=== PATIENT | male | born 1950 | race Caucasian/White ===

== ENCOUNTER 2019-08-16 13:45 | Emergency (ER) | payer MEDICARE, BC ==
--- NOTE | 2019-08-16 15:19 | XR ---
EXAMINATION TYPE: XR foot complete RT DATE OF EXAM: 08/16/2019 COMPARISON: NONE HISTORY: Foot pain TECHNIQUE: 3 views FINDINGS: Metatarsals appear intact. I see no fracture nor dislocation. There is plantar calcaneal sp urring. There is some spurring at the talonavicular joint. There is small Achilles calcaneal spur. IMPRESSION: Degenerative spur formation. No fracture seen.
--- NOTE | 2019-08-16 15:27 | ED ---
Lower Extremity Injury HPI - General Source: patient Mode of arrival: ambulatory Limitations: no limitations <Mary Andersen - Last Filed: 08/16/19 16:01> <Libia Le - Last Filed: 08/18/19 00:22> - General Chief Complaint: Extremity Injury, Lower Stated Complaint: Foot injury Time Seen by Provider: 08/16/19 14:11 - History of Present Illness Initial Comments: Patient is a 69-year-old male presenting to emergency Department with complaints of right foot pain after slipping on it yesterday. Patient states he slipped on a stair yesterday hurting his right foot. Patient states he was able to walk on his foot yesterday with minimal pain however today when he woke up he noticed increased amount of pain and some mild swelling. He was concerned he has a fracture in there. He denies any history of previous fractures. He denies any other injuries from falling yesterday. He has no other complaints today. On arrival to the ER, his vital signs are stable. (Mary Andersen) - Related Data Allergies Allergy/AdvReac Type Severity Reaction Status Date / Time No Known Allergies Allergy Verified 08/16/19 14:06 Review of Systems ROS Other: All systems not noted in ROS Statement are negative. <Mary Andersen - Last Filed: 08/16/19 16:01> ROS Other: All systems not noted in ROS Statement are negative. <Libia Le - Last Filed: 08/18/19 00:22> ROS Statement: Those systems with pertinent positive or pertinent negative responses have been documented in the HPI. Past Medical History Past Medical History: No Reported History History of Any Multi-Drug Resistant Organisms: None Reported Past Surgical History: No Surgical Hx Reported Past Psychological History: No Psychological Hx Reported Smoking Status: Never smoker Past Alcohol Use History: None Reported Past Drug Use History: None Reported <Mary Andersen - Last Filed: 08/16/19 16:01> General Exam Limitations: no limitations <Mary Andersen - Last Filed: 08/16/19 16:01> - General Exam Comments Initial Comments: GENERAL: Well-appearing, well-nourished and in no acute distress. HEAD: Atraumatic, normocephalic. EYES: Pupils equal round and reactive to light, extraocular movements intact, sclera anicteric, conjunctiva are normal. ENT: Moist mucous membranes. NECK: Normal range of motion, supple without lymphadenopathy or JVD. LUNGS: Breath sounds clear to auscultation bilaterally and equal. No wheezes rales or rhonchi. HEART: Regular rate and rhythm without murmurs, rubs or gallops. ABDOMEN: Soft, nontender, normoactive bowel sounds. No guarding, no rebound. No masses appreciated. EXTREMITIES: Patient has pain with palpation of the right lateral foot, over the fifth metatarsal. He does have full range of motion of his toes and ankle. No pain i n the ankle joint or tib-fib area. He is neurovascular intact. There is mild swelling to the area no bruising. No signs of infection. No clubbing or cyanosis. NEUROLOGICAL: Normal speech, normal gait. PSYCH: Normal mood, normal affect. SKIN: Warm, Dry, normal turgor, no rashes or lesions noted. (Mary Andersen) Course Vital Signs 08/16/19 08/16/19 14:03 15:28 Temperature 98.1 F 98.0 F Pulse Rate 66 68 Respiratory 20 18 Rate Blood Pressure 128/63 124/71 O2 Sat by Pulse 98 100 Oximetry Medical Decision Making <Mary Andersen - Last Filed: 08/16/19 16:01> <Libia Le - Last Filed: 08/18/19 00:22> - Medical Decision Making Patient is a 69-year-old male presenting with right foot pain after slipping on it yesterday. X-rays of the right foot show no acute fractures dislocations. I discussed with patient this is most likely a contusion. He will continue to use ice to the area, ibuprofen for pain. He will follow up with his PCP if symptoms persist. He is stable for discharge. He is in agreement this plan of care. Case discussed with Dr. Le. (Mary Andersen) I was available for consultation in the emergency department. The history and physical exam were done by the midlevel provider. I was consulted for this patients care. I reviewed the case with the midlevel provider and based on their presentation of the patient, I agree with the assessment, medical decision making and plan of care as documented. Chart was dictated using [employer] dictation software. Attempts were made to correct any dictation errors however some typographical errors may persist. (Libia Le) Disposition Is patient prescribed a controlled substance at d/c from ED?: No <Mary Andersen - Last Filed: 08/16/19 16:01> <Libia Le - Last Filed: 08/18/19 00:22> Clinical Impression: Contusion of right foot Disposition: HOME SELF-CARE Condition: Stable Instructions (If sedation given, give patient instructions): Foot Contusion (ED) Additional Instructions: Please return to the Emergency Department if symptoms worsen or any other concerns. Use ice to the area as well as ibuprofen for discomfort. Follow-up with PCP in 1-2 weeks if symptoms persist. Referrals: Aaron Navarrete MD [Primary Care Provider] - 1-2 days
[2019-08-16 15:32] VITALS: BP 124/71; PULSE 68; RESP 18; TEMP 98
== END 2019-08-16 15:28 | disposition home or self-care (01) ==
LOC: EC 13:45
DX: S90.31XA Contusion of right foot, initial encounter (principal); W18.40XA Slipping, tripping and stumbling without falling, unspecified, initial encounter; Y92.89 Other specified places as the place of occurrence of the external cause
CPT/HCPCS: 99283

== ENCOUNTER → 2020-07-22 | Outpatient (CLI) | payer MEDICARE, BC ==
--- NOTE | 2020-07-23 07:10 | US ---
EXAMINATION TYPE: US groin RT DATE OF EXAM: 07/22/2020 COMPARISON: NONE CLINICAL HISTORY: R19.00 ABD AND PELVIC PAIN, MASS AND LUMP. Patient states lump right groin that he can push back in. Scanning was performed directly over right groin where patient feels lump. There appears to be a leigh ia with 1.5 cm opening with the valsalva maneuver. IMPRESSION: Right-sided hernia is noted.
--- NOTE | 2020-07-23 07:10 | US ---
EXAMINATION TYPE: US groin LT DATE OF EXAM: 07/22/2020 COMPARISON: NONE CLINICAL HISTORY: R19.00 ABD AND PELVIC SWELLING MASS AND LUMP. Patient states lump in left groin, not as big as lump in right groin. Scanning was performed directly over lump in left groin as pointed out by patient. Valsalva maneuver was utilized. No definite hernia seen by ultrasound. IMPRESSION: No sonographic evidence for left inguinal hernia.
== END | disposition home or self-care (01) ==
LOC: RADUSWWP 16:12
PROVIDERS: ATTEND Family Medicine
DX: K40.90 Unilateral inguinal hernia, without obstruction or gangrene, not specified as recurrent (principal); R19.09 Other intra-abdominal and pelvic swelling, mass and lump

== ENCOUNTER → 2020-09-22 | Outpatient (CLI) | payer MEDICARE, BC ==
--- NOTE | 2020-09-23 02:08 | MR ---
EXAMINATION TYPE: MR ankle RT wo con DATE OF EXAM: 09/22/2020 COMPARISON: None HISTORY: Rt ankle pain x 6 months, retrocalcaneal exostosis Multiplanar multiecho imaging of the right ankle was performed with no contrast. There is plantar and Achilles calcaneal spurring. Achilles tendon is intact. There is some soft tissu e edema anterior to the Achilles tendon. The medial and lateral flexor tendons appear intact. Ankle mortise is anatomic. There is subcutaneous mild edema around the ankle. The collateral ligaments appear intact. There is no evidence of a fracture. There is some soft tissue edema also at the plantar aspect of the midfoot. IMPRESSION: No evidence of ligament or tendon tear. Soft tissue edema as above. No fracture.
== END | disposition home or self-care (01) ==
LOC: RADMRIMAIN 07:05
PROVIDERS: ATTEND Podiatrist Foot & Ankle Surgery
DX: R60.0 Localized edema (principal)

== ENCOUNTER 2021-11-01 11:20 | Inpatient (IN) | payer MEDICARE, BC ==
[2021-11-01] MEDS ORDERED: HEPARIN SODIUM 1,000 UN/ML (10ML VL) ONE (11:36)
[2021-11-01] MEDS ORDERED: fentaNYL (PF) 50 MCG/ML 2 ML AMP ONE (11:36)
[2021-11-01] MEDS ORDERED: fentaNYL (PF) 50 MCG/ML 2 ML AMP IVP ONE (11:44)
[2021-11-01] MEDS ORDERED: MIDAZOLAM 2 MG/2 ML VIAL IVP ONE (11:44)
[2021-11-01] MEDS ORDERED: LIDOCAINE 1% INJ 10MG/ML (30 ML VIAL-PF) SQ ONE (11:45)
[2021-11-01] MEDS ORDERED: IV FLUID CONTINUATION 1,000 ML IV ONE (11:50)
[2021-11-01] MEDS ORDERED: TICAGRELOR 90 MG TAB ONE (11:57)
[2021-11-01] MEDS ORDERED: TICAGRELOR 90 MG TAB PO ONE (12:00)
[2021-11-01] MEDS: HEPARIN SODIUM 1,000 UN/ML (10ML VL) IV ONE ×3 (12:00→12:32)
[2021-11-01] MEDS: NITROGLYCERIN 1000MCG/10ML SYRINGE INTRACORON ONE ×3 (12:14→12:33)
[2021-11-01] MEDS ORDERED: IOPAMIDOL-370 125ML BTL INJ ONE (12:33)
--- NOTE | 2021-11-01 12:42 | CC ---
CARDIAC CATHETERIZATION REPORT INDICATION: Acute inferior wall myocardial infarction. This is a 71-year-old gentleman who presented to [facility] with acute inferior wall WI and was transferred to [facility] emergently for cardiac catheterization and primary angioplasty. I arrived in the labor trainer and it was almost 10 to 15 minutes before the patient arrived in the lab. The patient got into the lab around 11:40 and was ready for lidocaine at 11:47. We proceeded expeditiously to perform diagnostic catheterization. PROCEDURE NOTE: After obtaining informed consent, left heart catheterization and coronary angiogram were performed via the right femoral artery using standard Marcos catheters. Patient tolerated the procedure well without any obvious immediate complications. FINDINGS: HEMODYNAMICS: Central aortic pressure is 120/80 mm. LEFT VENTRICULOGRAM: Left ventriculogram was not performed. ANGIOGRAPHIC DATA: Left main coronary artery is a normal-sized vessel and is free of stenosis. It divides into left anterior descending coronary artery and circumflex coronary artery. Circumflex coronary artery appears subtotally occluded in the mid to distal portion with [id number] collaterals. LAD is free of significant disease. The diagonal branch shows an 80% to 90% stenosis. Right coronary artery is a large dominant vessel that is totally occluded distally and there is a focal 95% stenosis in the mid portion. There are [id number] collaterals. CONCLUSIONS: Three-vessel coronary artery disease with an acutely occluded right coronary artery, which is the vessel responsible for myocardial infarction. PLAN: Dr. Villarreal will proceed with angioplasty of the right coronary artery. We will address the diagonal and the circumflex lesions down the road. MMODL / IJN: [id number] /
--- NOTE | 2021-11-01 14:17 | CONS ---
CONSULTATION This is a 71-year-old gentleman with no significant past medical history who sees Dr. Navarrete as his primary care physician. He presented to the emergency room at [facility] with sudden onset chest pain. Patient was mowing the lawn and started developing chest pressure, moderate to severe, in the precordial area that radiated to his back. He came to the ER, where the EKG showed acute ST-segment elevation in leads III and aVF with ST-segment depression in V2, V3. We made a diagnosis of acute inferior wall myocardial infarction and are arranging for emergent transfer to [facility] for catheterization and primary angioplasty. Patient has been explained risks, benefits and alternatives. PAST MEDICAL HISTORY: for hypertension, diabetes, dyslipidemia. MEDICATIONS: None. ALLERGIES: NONE. FAMILY HISTORY: Negative for premature coronary artery disease. SOCIAL HISTORY: Negative for current smoking, EtOH abuse or drug abuse. REVIEW OF SYSTEMS: HEENT is unremarkable. CARDIAC: As described above. RESPIRATORY: Negative. GI: Negative. GENITOURINARY: Negative. ALLERGY/IMMUNOLOGY: Negative. SKIN: Negative. MUSCULOSKELETAL: Negative. ENDOCRINE: Negative. DERMATOLOGY: Negative. CONSTITUTIONAL: Negative. ONCOLOGICAL: Negative. DIRECTOR OF EMPLOYER SERVICES: Negative. PHYSICAL EXAMINATION: On exam, he is comfortable at rest. Vital signs are stable. Chest exam reveals good air entry bilaterally. Heart exam reveals first and second heart sounds. No gallop. No murmur. No rub. Abdomen is soft, nontender. Examination of extremities did not reveal any edema. Peripheral pulses are felt. LABS: Labs show a hemoglobin of 11.9. Platelet count is 260. Electrolytes are pending at this time. EKG shows sinus bradycardia with acute inferior wall myocardial infarction. ASSESSMENT AND PLAN: Acute inferior wall myocardial infarction. Patient will be transferred to [facility] emergently for cardiac catheterization and primary angioplasty. MMODL / IJN: [id number] /
[2021-11-01] MEDS ORDERED: NITROGLYCERIN SL TABS 0.4 MG TAB SUBLINGUAL PRN (14:59)
[2021-11-01] MEDS ORDERED: RX INFO: IV CONTRAST WAS GIVEN 1 EACH MISC MISCELLANE PRN (14:59)
[2021-11-01] MEDS ORDERED: ZOLPIDEM 5 MG TAB PO PRN (14:59)
[2021-11-01] MEDS ORDERED: MAG HYDROX/AL HYDROX/SIMETH 30 ML CUP PO PRN (14:59)
[2021-11-01] MEDS ORDERED: ATROPINE SULFATE 0.1 MG/ML 10ML SYRINGE IV PRN (14:59)
[2021-11-01] MEDS ORDERED: SODIUM CHLORIDE 0.9% 1,000 ML in EMPTY BAG 1 BAG IV SCH (15:00)
[2021-11-01] MEDS ORDERED: NALOXONE 0.4 MG/ML 1 ML VIAL IV PRN (18:25)
[2021-11-01] MEDS ORDERED: MELATONIN 3 MG TABLET PO PRN (18:25)
[2021-11-01] MEDS ORDERED: bisacodyL 5 MG TABLET.DR PO PRN (18:25)
[2021-11-01] MEDS ORDERED: ONDANSETRON 4 MG/2 ML VIAL IVP PRN (18:25)
[2021-11-01] MEDS ORDERED: HYDROcodone/APAP 5-325MG 1 EACH TAB PO PRN (18:25)
[2021-11-01] MEDS ORDERED: ACETAMINOPHEN TAB 325 MG TAB PO PRN (18:25)
--- NOTE | 2021-11-01 18:32 | P.HPIM ---
History of Present Illness H&P Date: 11/01/21 (delayed charting seen at 1600) Chief Complaint: chest pain Patient is a 71-year-old male with no known past medical history who initially presented to [facility] with complaints of chest pain. 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 He was then transferred to the ICU. Patient seen and examined at bedside. He states today he is trying he uses [employer] when he felt sudden onset left-sided substernal chest pain. He denies any association with shortness of breath, nausea, lightheadedness or dizziness, diaphoresis, and abdominal pain. He states he tried to rest and again chest pain recurred when he pushed the mower. That is when he decided to come to the hospital. He denies any recent cough or cold, fever, flu. He has no heart history in the past and he does state he had some chest pain when working out approximately one week ago but it typically resolves and today he decided to proceed to the hospital because it did not resolve. He is very active and works out multiple times a week and watches his diet. Mother and father both of heart attacks before the age of 65. Pertinent positives and negatives as discussed in HPI, a complete review of systems was performed and all other systems are negative. General: non toxic, no distress, appears at stated age Derm: warm, dry Head: atraumatic, normocephalic, symmetric Eyes: EOMI, no lid lag, anicteric sclera, pupils equal round reactive to light ENT: Nose and ears atraumatic, no thrush, no pharyngeal erythema Neck: No thyromegaly, no cervical lymphadenopathy, trachea midline, supple Mouth: no lip lesion, mucus membranes moist Cardiovascular: S1S2 reg, no murmur, positive posterior tibial pulse bilateral, no edema, capillary refill less than 2 seconds Lungs: clear to ascultation bilateral, no ronchi, no rales, no wheeze, no accessory muscle use Abdominal: soft, nontender to palpation, no guarding, no appreciable organomegaly, normal bowel sounds Ext: no gross muscle atrophy, muscle strength muscle strength 5 out of 5 in all 4 extremities, no contractures Neuro: CN II-XI grossly intact, light touch intact all 4 extremities, finger to nose within normal limits, Psych: Alert, oriented, appropriate affect Assessment/plan: ST segment elevated myocardial infarction - Status post PCI to RCA - Aspirin/Brillenta - Metoprolol - Statin - A1C, Lipids DVT prophylaxis: Heparin Discussed with: Patientsharri Anticipated discharge: in 2-[address]: home A total of 65 minutes was spent on the care of this complex patient more than 50 % of the time was spent in counseling and care coordination. Past Medical History Past Medical History: No Reported History History of Any Multi-Drug Resistant Organisms: None Reported Past Surgical History: Hernia Repair Additional Past Surgical History / Comment(s): Cataract B/L eyes Past Anesthesia/Blood Transfusion Reactions: No Reported Reaction Past Psychological History: No Psychological Hx Reported Smoking Status: Former smoker Past Alcohol Use History: None Reported Past Drug Use History: None Reported - Past Family History Father History Unknown: Yes Family Medical History: Myocardial Infarction (NH) Additional Family Medical History / Comment(s): Mother History Unknown: Yes Family Medical History: Myocardial Infarction (NH) Additional Family Medical History / Comment(s): Sister(s) History Unknown: Yes Family Medical History: Diabetes Mellitus Daughter(s) History Unknown: Yes Family Medical History: No Reported History Son(s) History Unknown: Yes Family Medical History: No Reported History Medications and Allergies Home Medications Medication Instructions Recorded Confirmed Type Ammonium Lactate Lotion 1 applic TOPICAL QID 11/01/21 11/01/21 History [Lac-Hydrin 12% Lotion] Cholecalciferol [Vitamin D3 (125 125 mcg PO DAILY 11/01/21 11/01/21 History Mcg = 5000 Iu)] Magnesium W/Vitamin B-6 1 tab PO Q48H 11/01/21 11/01/21 History Allergies Allergy/AdvReac Type Severity Reaction Status Date / Time No Known Allergies Allergy Verified 11/01/21 13:19 Physical Exam Osteopathic Statement: *. No significant issues noted on an osteopathic structural exam other than those noted in the History and Physical/Consult. Vitals: Intake and Output 11/01/21 11/01/21 11/01/21 06:59 14:59 22:59 Intake Total 425 150 Output Total 550 Balance 425 -400 Intake: IV 350 Intake, IV Titration 75 150 Amount Sodium Chloride 0.9% 1, 75 150 000 ml In Empty Bag 1 bag @ 120 mls/hr IV .Q8H20M [facility] Rx#:[id number] Output: Urine 550 Other: Voiding Method Urinal Weight 84 kg 84 kg Thrombosis Risk Factor Assmnt - Choose All That Apply Any of the Below Risk Factors Present?: Yes Each Factor Represents 1 point: Acute NH, Medical pt on bed rest Other Risk Factors: No Other congenital or acquired thrombophilia - If yes, enter type in comment: No Thrombosis Risk Factor Assessment Total Risk Factor Score: 2 Thrombosis Risk Factor Assessment Level: Low Risk
--- NOTE | 2021-11-01 18:42 | P.PRCINT ---
Percutaneous Coronary Int. - Percutaneous Coronary Intervention Percutaneous Coronary Intervention: PROCEDURES PERFORMED: Right coronary angiography, PCI RCA with 3.0 x 38mm Xience TERESA, post dilated with a 4.0 NC balloon proximally INDICATION: Inferior STEMI PROCEDURE: After the risks, benefits and alternatives of the above mentioned procedure explained in detail with the patient, informed consent was obtained. Patient had already been taken to the catheterization lab and prepped and draped in usual fashion. A 6-Israeli sheath had already been placed in the right femoral artery. The decision was made to perform PCI of the RCA. Heparin was given to maintain ACT > 250. A 6FR AL 0.75 guide was used to engage the RCA. A 0.014 BMW wire was advanced into the distal RCA. Next predilation was performed with a 2.5 x 12mm balloon. There was a large thrombus burden at the level of a small caliber acute marginal branch and attempts were made at wiring the acute marginal however due to angulation this was unsuccessful with a 0.014 whisper wire and a microcatheter. Therefore the marginal branch was felt best treated medically. The lesion was again predilated with a 3.0 x 15mm balloon. Next a 3.0 x 38mm Xience TERESA was placed in the proximal to mid RCA. The proximal and mid portion of the stent was post dilated with a 4.0 x 12mm NC balloon. The wire was removed and final angiograms were performed. Pre intervention there was a 100% RCA stenosis and RAUDEL 1 flow and post intervention there was RAUDEL 3 flow with 0 % stenosis. A 6-Israeli FR5 catheter was inserted into the left ventricle and pressure measurements were obtained. A right femoral angiogram was performed which showed adequate anatomy for closure. A 6Fr Angioseal was placed with hemostasis achieved. The patient tolerated the procedure well. Patient was transported back to the post catheterization holding area in stable condition. Conscious Sedation: Patient was monitored under the direct supervision of vision of myself for conscious sedation using Versed and fentanyl for a total duration of 52 minutes HEMODYNAMICS: LV: 120/2, LVEDP 11 SELECTIVE CORONARY ARTERIOGRAPHY: LEFT MAIN: Not imaged, see diagnostic cath report. LEFT ANTERIOR DESCENDING CORONARY ARTERY: Not imaged, see diagnostic cath report. LEFT CIRCUMFLEX CORONARY ARTERY: Not imaged, see diagnostic cath report. RIGHT CORONARY ARTERY: The right coronary artery is a large caliber vessel which gives off a PDA and PLV branch and is the dominant vessel. There is diffuse proximal 70-80% RCA stenosis then a 100% mid RCA stenosis at the level of a small caliber acute marginal branch. FINAL IMPRESSION: 1. CAD as described above including 100% mid RCA stenosis 2. S/p PCI RCA with 3.0 x 38mm Xience TERESA, post dilated with a 4.0 NC balloon proximally 3. Normal left sided filling pressures PLAN: 1. Aggressive risk factor modification per most recent ACC/AHA guidelines. 2. Continue dual antiplatelets for 12 months with aspirin and Brillinta. 3. Consider staged PCI circumflex and diagonal branch.
[2021-11-01] MEDS: ATORVASTATIN 80 MG TAB PO SCH (20:14)
[2021-11-01] MEDS: METOPROLOL TARTRATE 25 MG TAB PO SCH (20:14)
[2021-11-01] MEDS: TICAGRELOR 90 MG TAB PO SCH (20:14)
[2021-11-01 22:52] LABS: Magnesium 2.1 mg/dL (1.6-2.3); Potassium 4.5 mmol/L (3.5-5.1)
[2021-11-02 06:09] LABS: Basophils % (A) 0 %; Eosinophils # (A) 0.1 k/uL (0-0.7); Eosinophils % (A) 1 %; HCT 37.2 % (39.0-53.0); HGB 11.9 gm/dL (13.0-17.5); Lymphocytes # (A) 1.7 k/uL (1.0-4.8); Lymphocytes % (A) 20 %; MCH 30.7 pg (25.0-35.0); MCV 95.8 fL (80.0-100.0); Mean Platelet Volume 7.2; Monocytes # (A) 0.5 k/uL (0-1.0); Monocytes % (A) 6 %; Neutrophils # (A) 6.2 k/uL (1.3-7.7); Neutrophils % (A) 72 %; Platelet Count 247 k/uL (150-450); RBC 3.88 m/uL (4.30-5.90); RDW 12.4 % (11.5-15.5); WBC 8.6 k/uL (3.8-10.6)
[2021-11-02 06:25] LABS: Calcium 8.7 mg/dL (8.4-10.2); Potassium 4.2 mmol/L (3.5-5.1)
[2021-11-02] MEDS: ASPIRIN 81 MG PO SCH (09:51)
[2021-11-02] MEDS: TICAGRELOR 90 MG TAB PO SCH ×2 (09:51→20:39)
[2021-11-02 10:03] LABS: LDL Cholesterol,Calculated 76.7 mg/dL (0.0-131.0); VLDL Calculation 14.48 mg/dL (5.00-40.00)
[2021-11-02] MEDS: METOPROLOL TARTRATE 25 MG TAB PO SCH ×2 (10:11→20:38)
--- NOTE | 2021-11-02 10:16 | P.PN ---
Subjective Progress Note Date: 11/02/21 This is a 71-year-old gentleman who was admitted with stuttering chest pains and evidence of inferior wall OR to [facility]. Subsequently was brought in here and had a Stent Placement of the RCA. Patient seemed to be doing well. Denies any chest pain, shortness of breath, dizziness or syncope. His maintaining sinus rhythm but has been having sinus bradycardia. Patient's metoprolol is held. His blood pressure is controlled. Lungs are clear. Heart is regular. No JVD. His groin is soft without any hematoma. His leg is warm. Echocardiogram is done this morning and the results are pending. We will continue current medical therapy and increase activity as tolerated. Patient c ould be transferred to{ 3 S} to the telemetry unit. His lipid panel is well controlled. Hemoglobin is mildly low. Objective - Vital Signs Vital signs: Vital Signs Temp 98.2 F 11/02/21 07:00 Pulse 53 L 11/02/21 09:10 Resp 20 11/02/21 09:10 BP 130/55 11/02/21 09:10 Pulse Ox 95 11/02/21 09:10 FiO2 Intake & Output 11/01/21 11/02/21 11/02/21 18:59 06:59 18:59 Intake Total 575 500 400 Output Total 550 1925 400 Balance 25 -1425 0 Weight 84 kg 83 kg Intake: IV 350 Intake, IV Titration 225 Amount Sodium Chloride 0.9% 1, 225 000 ml In Empty Bag 1 bag @ 120 mls/hr IV .Q8H20M [facility] Rx#:[id number] Oral 500 400 Output: Urine 550 1925 400 Other: Voiding Method Urinal Urinal - Exam GENERAL EXAM: Patient is alert and oriented and doesn't appear to be in any acute distress HEENT: Normocephalic. Normal reaction of pupils, equal size, normal range of extraocular motion. No erythema or exudates in the throat. NECK: No masses, no nuchal rigidity. CHEST: No chest wall deformity. LUNGS: Equal air entry with no crackles or wheeze. HEART: S1 and S2 normal with no audible mumurs or gallops. Regular rhythm, femorals equal on both sides.. ABDOMEN: No hepatosplenomegaly, normal bowel sounds, no guarding or rigidity. SKIN: No rashes CENTRAL NERVOUS SYSTEM: No focal deficits. EXTREMITIES: No cyanosis, clubbing or edema. GROIN: Soft without hematoma - Labs CBC & Chem 7: 11/02/21 05:46 11/02/21 05:46 Labs: Abnormal Lab Results - Last 24 Hours (Table) 11/02/21 11/02/21 Range/Units 05:46 05:46 RBC 3.88 L (4.30-5.90) m/uL Hgb 11.9 L (13.0-17.5) gm/dL Hct 37.2 L (39.0-53.0) % Carbon Dioxide 31 H (22-30) mmol/L Glucose 111 H (74-99) mg/dL Assessment and Plan (1) Acute OR, inferior wall Current Visit: Yes Status: Acute Code(s): I21.19 - STEMI INVOLVING OTH CORON DASHAWN ARTERY OF INFERIOR WALL SNOMED Code(s): 94061048 Plan: Patient is status post stent placement of the RCA. Currently on beta rebekah but being held because of bradycardia. Continue other medication including dual antiplatelet agents. Patient could be transferred to stepdown unit
[2021-11-02 11:46] VITALS: BMI 24.1
--- NOTE | 2021-11-02 14:09 | P.PN ---
Subjective Progress Note Date: 11/02/21 (delayed charting seen at 1115) Principal diagnosis: chest pain Patient is a 71-year-old male with no known past medical history who initially presented to [facility] with complaints of chest pain. There he was found to have an ST segment elevated myocardial infarction and he was emergently transferred to our manager labor delivery where he underwent PCI to RCA. He was then transferred to the ICU. Patient seen and examined at bedside. He has no chest pain, SOB, nausea or vomiting. General: non toxic, no distress, appears at stated age Derm: warm, dry Head: atraumatic, normocephalic, symmetric Eyes: EOMI, no lid lag, anicteric sclera Mouth: no lip lesion, mucus membranes moist Cardiovascular: S1S2 reg, no murmur, positive posterior tibial pulse bilateral, Lungs: CTA bilateral, no rhonchi, no rales , no accessory muscle use Abdominal: soft, nontender to palpation, no guarding, no appreciable organomegaly Ext: no gross muscle atrophy, no edema, no contractures Neuro: CN II-XI grossly intact, no focal neuro deficits Psych: Alert, oriented, appropriate affect Assessment/plan: Assessment/plan: ST segment elevated myocardial infarction - Status post PCI to RCA - Aspirin/Brillenta - Metoprolol - Statin - A1C, Lipids within normal - await echo Objective - Vital Signs Vital signs: Vital Signs Temp 98.2 F 11/02/21 07:00 Pulse 62 11/02/21 11:52 Resp 16 11/02/21 11:52 BP 147/69 11/02/21 11:52 Pulse Ox 96 11/02/21 11:52 FiO2 Intake & Output 11/01/21 11/02/21 11/02/21 18:59 06:59 18:59 Intake Total 575 500 850 Output Total 550 1925 525 Balance 25 -1425 325 Weight 84 kg 83 kg 83 kg Intake: IV 350 Intake, IV Titration 225 Amount Sodium Chloride 0.9% 1, 225 000 ml In Empty Bag 1 bag @ 120 mls/hr IV .[id number] [facility] Rx#:[id number] Oral 500 850 Output: Urine 550 1925 525 Other: Voiding Method Urinal Urinal - Labs CBC & Chem 7: 11/02/21 05:46 11/02/21 05:46 Labs: Abnormal Lab Results - Last 24 Hours (Table) 11/02/21 11/02/21 Range/Units 05:46 05:46 RBC 3.88 L (4.30-5.90) m/uL Hgb 11.9 L (13.0-17.5) gm/dL Hct 37.2 L (39.0-53.0) % Carbon Dioxide 31 H (22-30) mmol/L Glucose 111 H (74-99) mg/dL
--- NOTE | 2021-11-02 14:09 | CA ---
Transthoracic Echo Report Name: George Pinto Age: 71 Gender: M : 1950 Exam Date: 11/02/2021 07:54 Exam Location: [facility] Ht (in): 73 Wt (lb): 182 Ordering Physician: Chas Villarreal DO ([email or web address]) Attending/Referring Phys: Voice Teacher Terri Bassett RDCS Procedure CPT: Indications: s/p STEMI Cardiac Hx: Technical Quality: Good Contrast 1: Total Dose (mL): Contrast 2: Total Dose (mL): MEASUREMENTS (Male / Female) Normal Values 2D ECHO LV Diastolic Diameter PLAX 4.5 cm 4.2 - 5.9 / 3.9 - 5.3 cm LV Systolic Diameter PLAX 3.5 cm IVS Diastolic Thickness 1.2 cm 0.6 - 1.0 / 0.6 - 0.9 cm LVPW Diastolic Thickness 1.2 cm 0.6 - 1.0 / 0.6 - 0.9 cm LV Relative Wall Thickness 0.5 RV Internal Dim ED PLAX 3.8 cm LA Systolic Diameter LX 3.9 cm 3.0 - 4.0 / 2.7 - 3.8 cm LA Area 4C View 26.8 cm??? <= 20 cm??? M-MODE Aortic Root Diameter MM 3.4 cm MV E Point Septal Separation 0.4 cm AV Cusp Separation MM 2.5 cm DOPPLER AV Peak Velocity 203.4 cm/s AV Peak Gradient 16.6 mmHg AI Peak Velocity 353.6 cm/s AI Peak Gradient 50.0 mmHg AI Pressure Half Time 998.3 ms MV Area PHT 2.3 cm??? Mitral E Point Velocity 83.2 cm/s Mitral A Point Velocity 95.7 cm/s Mitral E to A Ratio 0.9 MV Deceleration Time 330.0 ms MV E' Velocity 6.3 cm/s Mitral E to MV E' Ratio 13.2 TR Peak Velocity 226.1 cm/s TR Peak Gradient 20.5 mmHg Right Ventricular Systolic Press 24.7 mmHg FINDINGS Left Ventricle Left ventricular ejection fraction is estimated at 55-55 %. Left ventricular cavity size normal. Borderline left ventricular hypertrophy. Basel inferior wall hypokinesisMildly increased septal wall thickness. Right Ventricle Moderate right ventricular dilatation. Right ventricular systolic pressure within normal limits. Right Atrium Normal right atrial size. Left Atrium Mildly increased left atrial area. Mitral Valve Mitral annular calcification. Aortic Valve Mild aortic regurgitation. Focal thickening of the aortic valve cusps. Tricuspid Valve Mild tricuspid regurgitation. Pulmonic Valve Trace pulmonic regurgitation. Pericardium Normal pericardium. Aorta Normal size aortic root and proximal ascending aorta. CONCLUSIONS Normal left ventricular dimension and systolic function [id number] mitral regurgitation Previewed by: Dr. Missael Rahman MD (Electronically Signed) Final Date: 02 Nov 2021 14:07
[2021-11-02] MEDS: ATORVASTATIN 80 MG TAB PO SCH (20:38)
[2021-11-03 08:17] VITALS: RESP 17; TEMP 97.5
[2021-11-03] MEDS: ASPIRIN 81 MG PO SCH (08:54)
[2021-11-03] MEDS: TICAGRELOR 90 MG TAB PO SCH (08:55)
[2021-11-03] MEDS: METOPROLOL TARTRATE 25 MG TAB PO SCH (08:56)
--- NOTE | 2021-11-03 14:41 | P.DS ---
Providers Date of admission: 11/01/21 12:55 Attending physician: Floyd Bell Consults: 11/01/21 14:59 Consult Physician Routine Consulting Provider: [facility] Consult Reason/Comments: Post Interventional patient Do you want consulting provider notified?: Already Contacted Primary care physician: Aaron Navarrete [facility] Course: This is a 71-year-old male who is admitted to the hospital secondary to STEMI. Patient underwent stenting of the RCA. Patient has been doing well post procedure. He denies any shortness of breath. Denies any chest pain. Vital signs have been stable. The patient was deemed stable for discharge home today per Dr. Davey. patient to follow up with Dr. Bell Discharge diagnosis STEMI, status post PCI to RCA Nurse practitioner note has been reviewed by physician. Signing provider agrees with the documented findings, assessment, and plan of care. Plan - Discharge Summary Discharge Rx Participant: No New Discharge Prescriptions: New Atorvastatin [Lipitor] 80 mg PO HS #90 tab Nitroglycerin Sl Tabs [Nitrostat] 0.4 mg SUBLINGUAL Q5M PRN #100 tab PRN Reason: Chest Pain Aspirin 81 mg PO DAILY #90 tab Ticagrelor [Brilinta] 90 mg PO BID #180 tab Metoprolol Tartrate [Lopressor] 25 mg PO BID #60 tab No Action Ammonium Lactate Lotion [Lac-Hydrin 12% Lotion] 1 applic TOPICAL QID Cholecalciferol [Vitamin D3 (125 Mcg = 5000 Iu)] 125 mcg PO DAILY Magnesium W/Vitamin B-6 1 tab PO Q48H Discharge Medication List Ammonium Lactate Lotion [Lac-Hydrin 12% Lotion] 1 applic TOPICAL QID 11/01/21 [History] Cholecalciferol [Vitamin D3 (125 Mcg = 5000 Iu)] 125 mcg PO DAILY 11/01/21 [ History] Magnesium W/Vitamin B-6 1 tab PO Q48H 11/01/21 [History] Aspirin 81 mg PO DAILY #90 tab 11/03/21 [Rx] Atorvastatin [Lipitor] 80 mg PO HS #90 tab 11/03/21 [Rx] Metoprolol Tartrate [Lopressor] 25 mg PO BID #60 tab 11/03/21 [Rx] Nitroglycerin Sl Tabs [Nitrostat] 0.4 mg SUBLINGUAL Q5M PRN #100 tab 11/03/21 [Rx] Ticagrelor [Brilinta] 90 mg PO BID #180 tab 11/03/21 [Rx] Follow up Appointment(s)/Referral(s): Aaron Navarrete MD [REFERRING] - 1 Week Floyd Bell MD [STAFF PHYSICIAN] - 1 Week Patient Instructions/Handouts: *Surgery [facility] - After Heart Catheterization - Mobile [employer] Instructions, Heart Attack (DC), Angio-Seal (DC)
[2021-11-03 14:42] VITALS: BP 117/56; PULSE 60
--- NOTE | 2021-11-03 16:17 | P.PN ---
Subjective Progress Note Date: 11/03/21 (delayed charting seen at 1015) Principal diagnosis: chest pain Patient is a 71-year-old male with no known past medical history who initially presented to [facility] with complaints of chest pain. 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 He was then transferred to the ICU. Patient seen and examined at bedside. Doing well, excited to go home. No chest pain, no shortness of breath. General: non toxic, no distress, appears at stated age Derm: warm, dry Head: atraumatic, normocephalic, symmetric Eyes: EOMI, no lid lag, anicteric sclera Mouth: no lip lesion, mucus membranes moist Cardiovascular: S1S2 reg, no murmur, positive posterior tibial pulse bilateral, Lungs: CTA bilateral, no rhonchi, no rales , no accessory muscle use Abdominal: soft, nontender to palpation, no guarding, no appreciable organomegaly Ext: no gross muscle atrophy, no edema, no contractures Neuro: CN II-XI grossly intact, no focal neuro deficits Psych: Alert, oriented, appropriate affect Assessment/plan: Assessment/plan: ST segment elevated myocardial infarction - Status post PCI to RCA - Aspirin/Brillenta - Metoprolol - Statin - A1C, Lipids within normal Cleared by cardiology for discharge. Objective - Vital Signs Vital signs: Vital Signs Temp 97.5 F L 11/03/21 12:00 Pulse 60 11/03/21 14:00 Resp 17 11/03/21 14:00 BP 117/56 11/03/21 12:00 Pulse Ox 96 11/03/21 12:00 FiO2 Intake & Output 11/02/21 11/03/21 11/03/21 18:59 06:59 18:59 Intake Total 968 Output Total 525 Balance 443 Weight 83 kg Intake: Oral 968 Output: Urine 525 Other: Voiding Method Urinal Urinal Urinal # Voids 2 - Labs CBC & Chem 7: 11/02/21 05:46 11/02/21 05:46
== END 2021-11-03 14:15 | disposition home or self-care (01) | DRG 247 ==
LOC: 2SICU 12:55 → 3SCARD 11-02 15:40
PROVIDERS: ADMIT Internal Medicine Cardiovascular Disease; ATTEND Internal Medicine Cardiovascular Disease
PROC: 4A023N7 Measurement of Cardiac Sampling and Pressure, Left Heart, Percutaneous Approach (ICD-10-PCS; principal; 2021-11-01 11:26)
PROC: B2111ZZ Fluoroscopy of Multiple Coronary Arteries using Low Osmolar Contrast (ICD-10-PCS; principal; 2021-11-01 11:26)
PROC: 027034Z Dilation of Coronary Artery, One Artery with Drug-eluting Intraluminal Device, Percutaneous Approach (ICD-10-PCS; principal; 2021-11-01 11:26)
DX: I21.19 ST elevation (STEMI) myocardial infarction involving other coronary artery of inferior wall (principal); E11.9 Type 2 diabetes mellitus without complications; R00.1 Bradycardia, unspecified; E78.5 Hyperlipidemia, unspecified; I10 Essential (primary) hypertension; I25.10 Atherosclerotic heart disease of native coronary artery without angina pectoris; Z82.49 Family history of ischemic heart disease and other diseases of the circulatory system; Z83.3 Family history of diabetes mellitus; Z87.891 Personal history of nicotine dependence; Z98.42 Cataract extraction status, left eye; Z98.41 Cataract extraction status, right eye
CPT/HCPCS: 80048; 80061; 83036; 83735; 84132; 85025; 93306; 93458

== ENCOUNTER 2022-01-17 08:42 | Day surgery (SDC) | payer MEDICARE, BC ==
[~2022-01-17 08:42] MED LIST: ALPRAZolam 0.25 MG TAB PO PRN; ALPRAZolam 0.5 MG TAB PO PRN; ASPIRIN 325 MG TAB PO STA; ATORVASTATIN 80 MG TAB PO STA; HEPARIN SODIUM,PORCINE 10,000 UNIT in SODIUM CHLORIDE 0.9% 1,000 ML IRRIGATION PRN; HEPARIN SODIUM,PORCINE 2,500 UNIT in SODIUM CHLORIDE 0.9% 250 ML IRRIGATION PRN; NITROGLYCERIN SL TABS 0.4 MG TAB SUBLINGUAL PRN; SODIUM CHLORIDE 0.9% 1,000 ML in EMPTY BAG 1 BAG IV SCH
[2022-01-17] MEDS ORDERED: ASPIRIN 81 MG ONE (09:03)
[2022-01-17 09:09] VITALS: RESP 16; TEMP 97.9
[2022-01-17] MEDS ORDERED: SODIUM CHLORIDE 0.9% 1,000 ML IV ONE (09:10)
[2022-01-17] MEDS ORDERED: METOPROLOL TARTRATE 25 MG TAB PO STA (09:15)
[2022-01-17] MEDS ORDERED: TICAGRELOR 90 MG TAB PO STA (09:15)
[2022-01-17 09:16] LABS: Basophils % (A) 0 %; Eosinophils # (A) 0.1 k/uL (0-0.7); Eosinophils % (A) 1 %; HCT 38.8 % (39.0-53.0); HGB 12.6 gm/dL (13.0-17.5); Lymphocytes # (A) 1.8 k/uL (1.0-4.8); Lymphocytes % (A) 27 %; MCH 30.8 pg (25.0-35.0); MCHC 32.4 g/dL (31.0-37.0); MCV 94.9 fL (80.0-100.0); Mean Platelet Volume 7.3; Monocytes # (A) 0.4 k/uL (0-1.0); Monocytes % (A) 6 %; Neutrophils # (A) 4.3 k/uL (1.3-7.7); Neutrophils % (A) 63 %; Platelet Count 298 k/uL (150-450); RBC 4.08 m/uL (4.30-5.90); RDW 12.3 % (11.5-15.5); WBC 6.8 k/uL (3.8-10.6)
[2022-01-17] MEDS ORDERED: VERAPAMIL 2.5 MG/ML 2 ML AMP ONE (10:15)
[2022-01-17] MEDS ORDERED: HEPARIN SODIUM 1,000 UN/ML (10ML VL) ONE (10:40)
[2022-01-17] MEDS ORDERED: fentaNYL (PF) 50 MCG/ML 2 ML AMP ONE (10:40)
[2022-01-17] MEDS ORDERED: fentaNYL (PF) 50 MCG/ML 2 ML AMP IV ONE (10:58)
[2022-01-17] MEDS ORDERED: MIDAZOLAM 2 MG/2 ML VIAL IV ONE (10:58)
[2022-01-17] MEDS ORDERED: LIDOCAINE 1% INJ 10MG/ML (5 ML VIAL-PF) SQ ONE ×2 (10:58→11:01)
[2022-01-17] MEDS ORDERED: VERAPAMIL SYRINGE (5 MG/10 ML) INTRAARTER ONE (11:03)
[2022-01-17] MEDS: HEPARIN SODIUM 1,000 UN/ML (10ML VL) IV ONE ×3 (11:07→12:07)
[2022-01-17] MEDS: NITROGLYCERIN 1000MCG/10ML SYRINGE INTRAARTER ONE ×2 (11:46→11:52)
[2022-01-17] MEDS ORDERED: IOPAMIDOL-370 125ML BTL INJ ONE (11:54)
[2022-01-17] MEDS ORDERED: IOPAMIDOL-370 100ML BTL INJ ONE (12:07)
[2022-01-17] MEDS ORDERED: SODIUM CHLORIDE 0.9% 1,000 ML in EMPTY BAG 1 BAG IV SCH (12:15)
--- NOTE | 2022-01-17 12:51 | P.PRCINT ---
Percutaneous Coronary Int. - Percutaneous Coronary Intervention Percutaneous Coronary Intervention: PROCEDURES PERFORMED: Left coronary angiography, PCI of diagonal 1 with a 3.0 x 15mm Xience TERESA, post dilated with a 3.25 NC balloon INDICATION: Staged PCI, obstructive 90% diagonal stenosis PROCEDURE: After the risks, benefits and alternatives of the above mentioned procedure explained in detail with the patient, informed consent was obtained. Patient had already been taken to the catheterization lab and prepped and draped in usual fashion. A 6Fr sheath had already been placed in the right radial artery. A 6-Estonian CLS 3.5 guide was attempted to engage left main however was too big and therefore changed out for a 6-[place]ian 3.0 CLS guide and was engage left main. A 0.014 BMW wire was advanced and distal diagonal branch. Heparin was given for ACT greater than 250. Predilation was performed with a 2.0 x 18 mm balloon. Next a 3.0 x 15 mm Xience TERESA was placed in the proximal diagonal 1. The proximal portion of the stent was postdilated with a 3.25 noncompliant balloon. The wire was pulled and final angiograms were performed. Preintervention there was 90% stenosis with RAUDEL 3 flow and postintervention there was distal edge 10% stenosis with RAUEDL 3 flow. The CLS guide was advanced in the left ventricle and pressure measurements were obtained. The right radial sheath was removed and a TR band was placed with hemostasis achieved. The patient tolerated the procedure well. Patient was transported back to the post catheterization holding area in stable condition. Conscious Sedation: Patient was monitored under the direct supervision of vision of myself for conscious sedation using Versed and fentanyl for a total duration of 28 minutes HEMODYNAMICS: Area: 144/78 LV: 142/2, LVEDP 9 FINAL IMPRESSION: 1. CAD with patent RCA stents and more distal 60-70% RCA stenosis, 90% diagonal 1 stenosis and proximal mid 30-40% LAD stenosis with ELECTRON BEAM WELDER of circumflex with right to left collaterals 2. Status post PCI of diagonal 1 with a 3.0 x 15mm Xience TERESA, post dilated with a 3.25 NC balloon 3. Normal left sided filling pressures PLAN: 1. Aggressive risk factor modification per most recent ACC/AHA guidelines. 2. Continue with dual antiplatelets with aspirin and Brillinta for 12 months.
[2022-01-17] MEDS ORDERED: ATROPINE SULFATE 0.1 MG/ML 10ML SYRINGE IV PRN (13:37)
[2022-01-17] MEDS ORDERED: ZOLPIDEM 5 MG TAB PO PRN (13:37)
[2022-01-17] MEDS ORDERED: MAG HYDROX/AL HYDROX/SIMETH 30 ML CUP PO PRN (13:37)
[2022-01-17] MEDS ORDERED: NITROGLYCERIN SL TABS 0.4 MG TAB SUBLINGUAL PRN (13:37)
[2022-01-17] MEDS ORDERED: RX INFO: IV CONTRAST WAS GIVEN 1 EACH MISC MISCELLANE PRN (13:37)
[2022-01-17 16:23] VITALS: BP 138/62; PULSE 48
[2022-01-17] MEDS ORDERED: ATORVASTATIN 80 MG TAB PO SCH (21:00)
[2022-01-17] MEDS ORDERED: METOPROLOL TARTRATE 25 MG TAB PO SCH (21:00)
[2022-01-17] MEDS ORDERED: TICAGRELOR 90 MG TAB PO SCH (21:00)
--- NOTE | 2022-01-17 22:20 | CC ---
CARDIAC CATHETERIZATION REPORT INDICATIONS: Known coronary artery disease, status post recent myocardial infarction, catheterization and angioplasty of right coronary artery. The patient had significant disease in the [place] 2nd diagonal and was advised to undergo elective cardiac catheterization. PROCEDURE NOTE: After obtaining informed consent, left heart catheterization, coronary angiogram are performed via the right radial artery using standard Marcos catheters. The patient tolerated the procedure well without any obvious immediate complications, received moderate conscious sedation. Total sedation time was 25 minutes. The right radial artery access was obtained using a micropuncture needle with Seldinger technique and catheters and wires were floated into the ascending aorta under fluoroscopic guidance. FINDINGS: 1. Right coronary artery: Right coronary artery is a large dominant vessel that shows that the previously stented segment appears patent, but at the junction of mid and distal right coronary artery there is a 50-60% stenosis that seemed to have both when compared to the previous cath at the end of the angioplasty. 2. Left main coronary artery is a normal-sized vessel and is free of stenosis. Divides into left anterior descending coronary artery and circumflex coronary artery. Circ is subtotally occluded with [id number] collaterals. LAD shows mild nonobstructive disease involving mid LAD, the large caliber diagonal branch shows a focal 90% stenosis. CONCLUSIONS: Three-vessel coronary artery disease as described above. PLAN: I will ask Dr. Villarreal to perform angioplasty of the diagonal and we may have to do IVUS of the right coronary artery. MMODL / IJN: [id number] /
[2022-01-19] MEDS ORDERED: ASPIRIN 81 MG PO SCH (09:00)
== END 2022-01-17 16:54 | disposition home or self-care (01) ==
LOC: CATHCVL 08:42
PROVIDERS: ATTEND Internal Medicine Cardiovascular Disease
DX: I25.10 Atherosclerotic heart disease of native coronary artery without angina pectoris (principal); Z95.5 Presence of coronary angioplasty implant and graft; I25.2 Old myocardial infarction; Z79.82 Long term (current) use of aspirin; Z79.02 Long term (current) use of antithrombotics/antiplatelets; Z79.899 Other long term (current) drug therapy
CPT/HCPCS: 93454; 85025; C9600; C1769; C1887; C1725 ×2; C1874; J2250; J2001; J3010; J1644; Q9967 ×2